=== PATIENT | male | born 1975 | race Caucasian/White ===

== ENCOUNTER 2024-08-18 00:35 | Emergency (ER) | payer MEDICAID, OTHER ==
[~2024-08-18] VITALS: Ht 170.2 cm; Wt 79.4 kg
[2024-08-18] MEDS ORDERED: KETOROLAC TROMETHAMINE 15 MG/ML VIAL ONE (02:28)
[2024-08-18] MEDS: KETOROLAC TROMETHAMINE 15 MG/ML VIAL IV ONE (02:54)
[2024-08-18 03:05] LABS: BASOPHILS # (AUTO) 0.1 K/uL (0.0-0.2); EOSINOPHILS # (AUTO) 0.1 K/uL (0.0-0.7); HEMATOCRIT 36 % (39-51); HEMOGLOBIN 12.6 g/dL (13.5-17.5); LYMPHOCYTES # (AUTO) 0.8 K/uL (0.8-4.8); LYMPHOCYTES % (AUTO) 11.7 % (20.0-44.0); MEAN CORPUSCULAR HEMOGLOBIN 32 PG (26.0-33.0); MEAN CORPUSCULAR HGB CONC 36 g/dl (31.0-36.0); MEAN CORPUSCULAR VOLUME 89 fL (80-96); MONOCYTES # (AUTO) 0.9 K/uL (0.1-1.30); MONOCYTES % (AUTO) 12.3 % (2.0-12.0); NEUTROPHILS # (AUTO) 5.1 K/uL (1.8-8.9); PLATELET COUNT (AUTO) 225 K/uL (150-450)
[2024-08-18 03:09] LABS: CREATININE 0.7 mg/dL (0.6-1.3); ERYTHROCYTE SEDIMENTATION RATE 39 MM/HR (0-15); POTASSIUM 3.6 mmol/L (3.5-5.1)
[2024-08-18 03:27] LABS: C-REACTIVE PROTEIN 8.66 mg/dL (0.0-0.30)
[2024-08-18] MEDS ORDERED: VANCOMYCIN 1 GM /D5W 250 ML PB IV ONE (03:33)
[2024-08-18] MEDS ORDERED: PIPERACI/TAZO 3.375GM/D5W 50ML PB IV ONE (03:33)
[2024-08-18] MEDS ORDERED: ENOXAPARIN SODIUM 80 MG/0.8 ML DISP.SYRIN SQ ONE (03:56)
[2024-08-18] MEDS: ENOXAPARIN SODIUM 80 MG/0.8 ML DISP.SYRIN SQ ONE (03:57)
[2024-08-18] MEDS: PIPERACILLIN /TAZOBACTAM 3.375 G in IV D5W 50 ML IV ONE (03:58)
[2024-08-18] MEDS: VANCOMYCIN 1 GM in IV D5W 250 ML IV ONE (04:08)
[2024-08-18] MEDS ORDERED: IV NS 0.9% 1,000 ML IV PRN (07:00)
[2024-08-18] MEDS ORDERED: KETOROLAC TROMETHAMINE 15 MG/ML VIAL IV PRN (07:00)
[2024-08-18] MEDS ORDERED: ONDANSETRON HCL/PF 4 MG/2 ML VIAL IVP PRN (07:00)
[2024-08-18] MEDS ORDERED: ACETAMINOPHEN 325 MG TABLET PO PRN (07:00)
[2024-08-18] MEDS ORDERED: RIVA15TA PO (10:05)
[2024-08-18] MEDS ORDERED: SULF1TAB48 PO (10:05)
[2024-08-18 10:12] VITALS: BP 122/87; TEMP 98.1; O2SAT 99
== END 2024-08-18 10:14 | disposition left against medical advice (07) ==
LOC: ER 00:38
DX: I82.622 Acute embolism and thrombosis of deep veins of left upper extremity (principal)
CPT/HCPCS: 99285; 96365; 93971; 96375; 96368; 73110; 85025; 80048; 85378; 85652; 36415; 86140; 96372; J1885; J3370; J2543; J1650